=== PATIENT | female | born 1990 | race African-American/Black ===

== ENCOUNTER 2020-02-11 13:12 | Emergency (ER) | payer OTHER ==
[~2020-02-11] VITALS: Ht 175.3 cm; Wt 64.4 kg
[2020-02-11 13:50] VITALS: BP 108/79
--- NOTE | 2020-02-11 13:55 | NUR ---
ED Nurse Note: Patient is 16 weeks c/o left sided abdominal pain since yesterday no bleeding reported, also sore throat no fever. Patient presented AAO x4, VSS at this time.
[2020-02-11 14:17] LABS: BASOPHILS % (AUTO) 0.3 % (0.0-2.0); EOSINOPHILS % (AUTO) 0.3 % (0.0-3.0); HEMATOCRIT 35.4 % (37.0-47.0); HEMOGLOBIN 11.8 G/DL (12.0-16.0); LYMPHOCYTES % (AUTO) 11.5 % (20.0-45.0); MEAN CORPUSCULAR VOLUME 81 FL (80-99); MONOCYTES % (AUTO) 5.7 % (1.0-10.0); NEUTROPHILS % (AUTO) 82.3 % (45.0-75.0); PLATELET COUNT 230 K/UL (150-450); RED BLOOD COUNT 4.38 M/UL (4.20-5.40); RED CELL DISTRIBUTION WIDTH 13.1 % (11.6-14.8)
[2020-02-11 14:22] LABS: APPEARANCE,URINE CLEAR; BILIRUBIN, URINE NEGATIVE (NEGATIVE); COLOR,URINE PALE YELLOW; GLUCOSE, URINE (UA) NEGATIVE (NEGATIVE); KETONES,URINE NEGATIVE (NEGATIVE); LEUKOCYTE ESTERASE ,URINE NEGATIVE (NEGATIVE); NITRITE,URINE NEGATIVE (NEGATIVE); PH,URINE 7 (4.5-8.0); PROTEIN,URINE NEGATIVE (NEGATIVE); UROBILINOGEN,URINE NORMAL MG/DL (0.0-1.0)
[2020-02-11 14:38] LABS: ANION GAP 11 mmol/L (5-15); BLOOD UREA NITROGEN 5 mg/dL (7-18); CARBON DIOXIDE 24 MMOL/L (21-32); CHLORIDE 102 MMOL/L (98-107); CREATININE 0.5 MG/DL (0.55-1.30); POTASSIUM 3.7 MMOL/L (3.5-5.1); SODIUM 137 MMOL/L (136-145)
[2020-02-11 14:43] LABS: ALANINE AMINOTRANSFERASE 22 U/L (12-78); ALBUMIN 3.1 G/DL (3.4-5.0); ALBUMIN/GLOBULIN RATIO 0.8 (1.0-2.7); ALKALINE PHOSPHATASE 72 U/L (46-116); ASPARTATE AMINO TRANSFERASE 23 U/L (15-37); BILIRUBIN,TOTAL 0.3 MG/DL (0.2-1.0)
--- NOTE | 2020-02-11 15:40 | Emergency Room Report ---
History of Present Illness General Chief Complaint: Abdominal Pain Source: Patient Present Illness HPI 29-year-old female who is 16 weeks here complaining of left sided abdominal pain x3 days as well as 1010 sore throat and congestion x3 days. Denies any fever and chills, cough, recent travel. Has been staying home. Denies any vaginal spotting or bleeding. Denies any urinary symptoms. Rates the pain abdomen 5 out of 10. Denies any constipation diarrhea. Denies flatulence. Sitting comfortably with stable vital signs. Patient was put in isolation due to URI symptoms. Denies smoking and drug use. Is up-to-date with her OB visits. COVID-19 risk:Contact w/high r: No COVID-19 risk:Travel to affect: No Has patient experienced sheppard: No Allergies: Coded Allergies: No Known Allergies (Unverified , 02/11/20) Patient History Past Medical History: see triage record Past Surgical History: none Pertinent Family History: none Now: Yes - 16 weeks Immunizations: UTD Reviewed Nursing Documentation: PMH: Agreed; PSxH: Agreed Nursing Documentation-PMH Past Medical History: No Stated History Review of Systems All Other Systems: negative except mentioned in HPI Physical Exam Vital Signs Date Time Temp Pulse Resp B/P (MAP) Pulse Ox O2 Delivery O2 Flow Rate FiO2 02/11/20 13:32 98.1 120 18 108/79 (89) 98 Room Air Sp02 EP Interpretation: reviewed, normal General Appearance: no apparent distress, alert, GCS 15, non-toxic Head: normocephalic, atraumatic Eyes: bilateral eye normal inspection, bilateral eye PERRL ENT: hearing grossly normal, no angioedema, normal voice, tonsillar swelling, pharyngeal erythema, tonsillar exudate Neck: full range of motion, supple, thyroid normal, supple/symm/no masses Respiratory: chest non-tender, lungs clear, normal breath sounds, no wheezing, speaking full sentences Cardiovascular #1: regular rate, rhythm, no edema, no murmur Gastrointestinal: normal bowel sounds, non tender, soft, non-distended, no guarding, no rebound Rectal: deferred Genitourinary: no CVA tenderness Musculoskeletal: back normal, no calf tenderness Neurologic: alert, motor strength/tone normal, oriented x3, sensory intact, responsive, speech normal Psychiatric: judgement/insight normal, memory normal, mood/affect normal, no suicidal/homicidal ideation Skin: no rash Lymphatic: no adenopathy Medical Decision Making PA Attestation All my diagnosis and treatment plans were reviewed ad discussed with my supervising physician Dr. Crystal Diagnostic Impression: Primary Impression: Strep pharyngitis Additional Impressions: Abdominal pain during URI (upper respiratory infection) ER Course 29-year-old female who is 16 weeks here complaining of left sided abdominal pain x3 days as well as 1010 sore throat and congestion x3 days. Denies any fever and chills, cough, recent travel. Has been staying home. Denies any vaginal spotting or bleeding. Denies any urinary symptoms. Rates the pain abdomen 5 out of 10. Denies any constipation diarrhea. Denies flatulence. Sitting comfortably with stable vital signs. Patient was put in isolation due to URI symptoms. Denies smoking and drug use. Is up-to-date with her OB visits. Ddx considered but are not limited to: Coronavirus, strep pharyngitis, URI, tonsillitis, peritonsillar abscess, influneza, ectopic , abdominal pain during , vaginal bleeding during , threatened , spontaneous Vital signs: are WNL, pt. is afebrile H&PE are most consistent with: Abdominal pain during , strep pharyngitis, URI ORDERS: CBC, CMP, UA, type and screen, beta-hCG, OB ultrasound, influenza swab, amoxicillin, Tylenol ED INTERVENTIONS: NS bolus DISCHARGE: At this time pt. is stable for d/c to home. Will provide printed patient care instructions, and any necessary prescriptions. Care plan and follow up instructions have been discussed with the patient prior to discharge. Patient to follow-up with [facility], take medication as directed, self quarantine advised. Take medication as directed, follow-up with your primary doctor, you need to stay home for self quarantine due to Covid [address] precautions for [address]/MRI/US Diagnostic Results CT/MRI/US Diagnostic Results : Imaging Test Ordered: OB ultrasound Impression Heart rate 161, single intrauterine , in no distress, no free fluid Last Vital Signs Date Time Temp Pulse Resp B/P (MAP) Pulse Ox O2 Delivery O2 Flow Rate FiO2 02/11/20 13:50 98.1 18 108/79 98 Room Air 02/11/20 13:50 120 Status: improved Disposition: HOME, SELF-CARE Condition: Stable Scripts Acetaminophen* (TYLENOL EXTRA STRENGTH*) 500 Mg Tablet 500 MG ORAL Q8H PRN for Prn Headache/Temp > 101, #30 TAB 0 Refills Prov: Nimco Keller 02/11/20 Amoxicillin* (AMOXIL*) 500 Mg Capsule 500 MG ORAL EVERY 12 HOURS for 10 Days, #20 CAP Prov: Nimco Keller 02/11/20 Referrals: NON PHYSICIAN (PCP) Patient Instructions: Abdominal Pain During , Pharyngitis Additional Instructions: Follow-up with [facility] in 24 to 48 hours, take medication as directed, if worsening abdominal pain, vaginal bleeding return to the emergency room. Take medication as directed, follow-up with your primary doctor, you need to stay home for self quarantine due to Covid 19 precautions for 14 days Nimco Keller Feb 11, 2020 15:40
[2020-02-11] MEDS ORDERED: AMOXICILLIN500 MG ORAL (15:41)
[2020-02-11] MEDS ORDERED: TYLENOL EXTRA500 MG ORAL (15:41)
--- NOTE | 2020-02-11 15:50 | NUR ---
ED Nurse Note: Pt cleared by health care Provider for discharge. DC instructions/prescription was given and explained to pt and verbalized understanding of teachings. All medical deviecs such as ID band IV removed. Pt is AAO x4, ambulatory and left with all personal belongings.
--- NOTE | 2020-02-11 16:05 | Diagnostic Imaging Report ---
Indication: Abdominal pain. female. Suspected Covid 19 infection Technique: Grayscale and duplex Doppler imaging of the pelvis performed utilizing a transabdominal scan and endovaginal scan. Study was limited. Comparison: None Findings: 13 weeks 6 day single living intrauterine demonstrated. This is based on sonographic criteria. presentation is variable. Amniotic fluid appears appropriate for gestational age. heart tones seen. IMPRESSION: Limited OB ultrasound demonstrating 13 weeks 6 day viable intrauterine . Note: A negative ultrasound evaluation does not insure well-being or positive outcome for the . monitoring including a nonstress test may be needed and clinical evaluation by [facility] is highly recommended.
== END 2020-02-11 15:49 | disposition home or self-care (01) ==
LOC: EMR 13:42
DX: O26.91 Pregnancy related conditions, unspecified, first trimester (principal); O99.511 Diseases of the respiratory system complicating pregnancy, first trimester; J02.0 Streptococcal pharyngitis; J06.9 Acute upper respiratory infection, unspecified; R10.9 Unspecified abdominal pain; Z3A.13 13 weeks gestation of pregnancy
CPT/HCPCS: 76805; 80053; 81003; 84702; 85025; 86710; 96360; J7030; Z7502; 99284